=== PATIENT | female | born 1985 | race Two or more races ===

== ENCOUNTER 2020-09-16 15:37 | Emergency (ER) | payer SELFPAY ==
[2020-09-16] MEDS ORDERED: Acetaminophen/HYDROcodone 325-5 MG Tab PO ONE ×2 (15:38→18:42)
--- NOTE | 2020-09-16 15:59 | EDM.PDOC ---
ED HPI GENERAL MEDICAL PROBLEM - General Stated Complaint: BACK PAIN AND STOMACH Time Seen by Provider: 09/16/20 15:55 Source of Information: Reports: Patient History Limitations: Reports: No Limitations - History of Present Illness INITIAL COMMENTS - FREE TEXT/NARRATIVE: 35-year-old female who reports yesterday morning she awoke with in her right lower abdomen and flank and it has seemed to move around to her right back as well. The pain has been a constant pain that she reports is a dull and aching pain but there are sharp spikes with the pain and there is worse pain with movement and with palpation of the area. She has had nausea but no vomiting. She has had really no appetite and she has had decreased oral intake and has not really been eating at all. She reports the pain is a 10/10. She also reports that she has been having burning with urination. No fevers or chills. No cough. No nasal congestion. No diarrhea. There are no other associated signs or symptoms. There are no other modifying factors. Onset: Other (Yesterday morning) Duration: Constant, Getting Worse Location: Reports: Abdomen, Back Quality: Reports: Ache, Sharp Severity: Severe Improves with: Reports: None Worsens with: Reports: Other (Palpation), Movement Context: Reports: Other (As above.) Associated Symptoms: Reports: Loss of Appetite, Nausea/Vomiting Treatments [facility]: Reports: Other (see below) (Nothing.) right back Pain Score (Numeric/FACES): 10 - Related Data Allergies Allergy/AdvReac Type Severity Reaction Status Date / Time morphine AdvReac Mild Nausea and Verified 09/16/20 17:57 Vomiting Home Meds: Home Meds Sulfamethoxazole/Trimethoprim [Bactrim Ds Tablet] 1 each PO BID 10 Days #20 tablet 09/16/20 [Rx] Past Medical History Cardiovascular History: Reports: Arrhythmia (She has an AICD in place) - Past Surgical History Cardiovascular Surgical History: Reports: AICD Female Surgical History: Reports: Hysterectomy Social & Family History - Tobacco Use Tobacco Use Status *Q: Unknown Ever Used Tobacco (Nonsmoker) - Alcohol Use Alcohol Use History: No - Living Situation & Occupation Occupation: Unemployed ED ROS GENERAL - Review of Systems Review Of Systems: See Below Constitutional: Reports: No Symptoms HEENT: Reports: No Symptoms Respiratory: Reports: No Symptoms Cardiovascular: Reports: No Symptoms Endocrine: Reports: No Symptoms GI/Abdominal: Reports: Abdominal Pain, Nausea. Denies: Diarrhea, Vomiting : Reports: Dysuria, Flank Pain (Right) Musculoskeletal: Reports: Back Pain (Right-sided back pain) Skin: Reports: No Symptoms Neurological: Reports: No Symptoms Hematologic/Lymphatic: Reports: No Symptoms Immunologic: Reports: No Symptoms ED EXAM, GI/ABD - Physical Exam Exam: See Below Exam Limited By: No Limitations General Appearance: Alert, WD/WN, Moderate Distress (In acute pain.) Eyes: Bilateral: Normal Appearance Ears: Normal External Exam, Hearing Grossly Normal Nose: Normal Inspection, Normal Mucosa, No Blood Throat/Mouth: Normal Voice, No Airway Compromise, Other (Dry mucous membranes) Head: Atraumatic, Normocephalic Neck: Normal Inspection, Supple, Non-Tender, Full Range of Motion Respiratory/Chest: No Respiratory Distress, Lungs Clear, Normal Breath Sounds, No Accessory Muscle Use, Chest Non-Tender Cardiovascular: Normal Peripheral Pulses, Regular Rate, Rhythm, No Murmur GI/Abdominal Exam: Normal Bowel Sounds, Soft, Tender (In her right lower quadrant and right flank.) Back Exam: Normal Inspection, CVA Tenderness (R) Extremities: Normal Inspection, Normal Range of Motion, Non-Tender, No Pedal Edema, Normal Capillary Refill Neurological: Alert, Oriented, CN II-XII Intact, Normal Cognition, No Motor/Sensory Deficits Psychiatric: Normal Affect Skin Exam: Warm, Dry, Intact, Normal Color, No Rash Course - Vital Signs Last Recorded V/S: Last Vital Signs Temp 36.5 C 09/16/20 15:50 Pulse 66 09/16/20 17:57 Resp 16 09/16/20 17:57 BP 104/67 09/16/20 17:57 Pulse Ox 100 09/16/20 17:57 - Orders/Labs/Meds Orders: Active Orders 24 hr Category Date Time Status Abdomen Pelvis wo Cont [CT] Stat Exams 09/16/20 17:32 Taken Acetaminophen/HYDROcodone [Dale 325-5 MG] Med 09/16/20 18:42 Once 2 tab PO ONETIME ONE Sodium Chloride 0.9% [Normal Saline] 1,000 ml Med 09/16/20 16:15 Active IV ASDIRECTED Sodium Chloride 0.9% [Saline Flush] Med 09/16/20 16:08 Active 10 ml FLUSH ASDIRECTED PRN cefTRIAXone [Rocephin] Med 09/16/20 18:43 Once 1 gm IVPUSH ONETIME ONE Peripheral IV Insertion Adult [OM.PC] Routine Oth 09/16/20 16:08 Ordered Medication Orders Hydrocodone Bitart/Acetaminophen (Dale 325-5 Mg) 2 tab PO ONETIME ONE Stop: 09/16/20 18:43 Ceftriaxone Sodium (Rocephin) 1 gm IVPUSH ONETIME ONE Stop: 09/16/20 18:44 Sodium Chloride (Normal Saline) 1,000 mls @ 150 mls/hr IV ASDIRECTED TERRY Last Admin: 09/16/20 17:52 Dose: 150 mls/hr Documented by: LISY Sodium Chloride (Saline Flush) 10 ml FLUSH ASDIRECTED PRN PRN Reason: Keep Vein Open Last Admin: 09/16/20 16:33 Dose: 10 ml Documented by: LISY Labs: Laboratory Tests 09/16/20 09/16/20 09/16/20 Range/Units 16:00 16:00 16:00 WBC 6.1 (3.0-10.3) x10-3/uL RBC 4.73 (3.60-5.20) x10(6)uL Hgb 14.3 (11.4-15.5) g/dL Hct 43.9 (34.2-48.2) % MCV 92.8 (76.7-100.5) fL MCH 30.3 (23.9-33.9) pg MCHC 32.7 (31.9-34.8) g/dL RDW 13.7 (12.3-16.5) % Plt Count 237 (151-488) x10(3)uL MPV 8.2 (7.1-12.4) fL Neut % (Auto) 62.3 (30.8-76.2) % Lymph % (Auto) 27.7 (18.4-52.1) % [place] % (Auto) 7.7 (4.4-15.7) % Eos % (Auto) 1.6 (0.6-8.1) % Baso % (Auto) 0.7 (0.2-1.5) % Neut # (Auto) 3.8 (1.5-6.3) x10-3/uL Lymph # (Auto) 1.7 (1.0-4.4) x10-3/uL [place] # (Auto) 0.5 (0.3-1.0) x10-3/uL Eos # (Auto) 0.1 (0.0-0.8) x10-3/uL Baso # (Auto) 0.0 (0.0-0.1) x10-3/uL Sodium 138 (135-145) mmol/L Potassium 4.2 (3.5-5.3) mmol/L Chloride 102 (100-110) mmol/L Carbon Dioxide 26 (21-32) mmol/L BUN 17 (7-18) mg/dL Creatinine 0.6 (0.55-1.02) mg/dL Est Cr Clr Drug Dosing TNP Estimated GFR (MDRD) > 60 (>60) BUN/Creatinine Ratio 28.3 H (9-20) Glucose 98 (80-116) mg/dL Calcium 9.0 (8.6-10.2) mg/dL Magnesium 2.2 (1.8-2.5) mg/dL Total Bilirubin 0.3 (0.1-1.3) mg/dL AST 20 (5-25) IU/L ALT 25 (12-36) U/L Alkaline Phosphatase 51 L (56-112) IU/L C-Reactive Protein (0.5-0.9) mg/dL Total Protein 7.7 (6.0-8.0) g/dL Albumin 3.9 (3.5-5.2) g/dL Globulin 3.8 g/dL Albumin/Globulin Ratio 1.0 Lipase (73-393) U/L Urine Color Yellow (YELLOW) Urine Appearance Clear (CLEAR) Urine pH 5.0 (5.0-6.5) Ur Specific [place] 1.015 (1.010-1.025) Urine Protein Negative (NEGATIVE) mg/dL Urine Glucose (UA) Normal (NORMAL) mg/dL Urine Ketones Negative (NEGATIVE) mg/dL Urine Occult Blood Negative (NEGATIVE) Urine Nitrite Negative (NEGATIVE) Urine Bilirubin Negative (NEGATIVE) Urine Urobilinogen Normal (NEGATIVE) mg/dL Ur Leukocyte Esterase Negative (NEGATIVE) Urine RBC 0-5 (0-5) Urine WBC 0-5 (0-5) Ur Squamous Epith Cells Occasional (NS,R,O) Urine Bacteria Rare H (NS) 09/16/20 Range/Units 16:00 WBC (3.0-10.3) x10-3/uL RBC (3.60-5.20) x10(6)uL Hgb (11.4-15.5) g/dL Hct (34.2-48.2) % MCV (76.7-100.5) fL MCH (23.9-33.9) pg MCHC (31.9-34.8) g/dL RDW (12.3-16.5) % Plt Count (151-488) x10(3)uL MPV (7.1-12.4) fL Neut % (Auto) (30.8-76.2) % Lymph % (Auto) (18.4-52.1) % [place] % (Auto) (4.4-15.7) % Eos % (Auto) (0.6-8.1) % Baso % (Auto) (0.2-1.5) % Neut # (Auto) (1.5-6.3) x10-3/uL Lymph # (Auto) (1.0-4.4) x10-3/uL [place] # (Auto) (0.3-1.0) x10-3/uL Eos # (Auto) (0.0-0.8) x10-3/uL Baso # (Auto) (0.0-0.1) x10-3/uL Sodium (135-145) mmol/L Potassium (3.5-5.3) mmol/L Chloride (100-110) mmol/L Carbon Dioxide (21-32) mmol/L BUN (7-18) mg/dL Creatinine (0.55-1.02) mg/dL Est Cr Clr Drug Dosing Estimated GFR (MDRD) (>60) BUN/Creatinine Ratio (9-20) Glucose (80-116) mg/dL Calcium (8.6-10.2) mg/dL Magnesium (1.8-2.5) mg/dL Total Bilirubin (0.1-1.3) mg/dL AST (5-25) IU/L ALT (12-36) U/L Alkaline Phosphatase (56-112) IU/L C-Reactive Protein < 0.2 L (0.5-0.9) mg/dL Total Protein (6.0-8.0) g/dL Albumin (3.5-5.2) g/dL Globulin g/dL Albumin/Globulin Ratio Lipase 112 (73-393) U/L Urine Color (YELLOW) Urine Appearance (CLEAR) Urine pH (5.0-6.5) Ur Specific [place] (1.010-1.025) Urine Protein (NEGATIVE) mg/dL Urine Glucose (UA) (NORMAL) mg/dL Urine Ketones (NEGATIVE) mg/dL Urine Occult Blood (NEGATIVE) Urine Nitrite (NEGATIVE) Urine Bilirubin (NEGATIVE) Urine Urobilinogen (NEGATIVE) mg/dL Ur Leukocyte Esterase (NEGATIVE) Urine RBC (0-5) Urine WBC (0-5) Ur Squamous Epith Cells (NS,R,O) Urine Bacteria (NS) Meds: Medications Generic Name Dose Route Start Last Admin Trade Name Freq PRN Reason Stop Dose Admin Hydrocodone Bitart/Acetaminophen 2 tab 09/16/20 18:42 Dale 325-5 Mg PO 09/16/20 18:43 ONETIME ONE Ceftriaxone Sodium 1 gm 09/16/20 18:43 Rocephin IVPUSH 09/16/20 18:44 ONETIME ONE Sodium Chloride 1,000 mls @ 150 mls/hr 09/16/20 16:15 09/16/20 17:52 Normal Saline IV 150 mls/hr ASDIRECTED TERRY Administration Sodium Chloride 10 ml 09/16/20 16:08 09/16/20 16:33 Saline Flush FLUSH 10 ml ASDIRECTED PRN Administration Keep Vein Open Discontinued Medications Generic Name Dose Route Start Last Admin Trade Name Freq PRN Reason Stop Dose Admin Hydromorphone HCl 1 mg 09/16/20 16:53 09/16/20 16:58 Dilaudid IVPUSH 09/16/20 16:54 1 mg ONETIME ONE Administration Sodium Chloride 1,000 mls @ 999 mls/hr 09/16/20 16:09 09/16/20 16:33 Normal Saline IV 09/16/20 17:09 999 mls/hr .BOLUS ONE Administration Ketorolac Tromethamine 30 mg 09/16/20 17:39 09/16/20 17:50 Toradol IVPUSH 09/16/20 17:40 30 mg ONETIME ONE Administration Morphine Sulfate 4 mg 09/16/20 16:09 09/16/20 17:49 Morphine IVPUSH 09/16/20 16:10 Not Given ONETIME ONE Ondansetron HCl 4 mg 09/16/20 16:09 09/16/20 16:34 Zofran IVPUSH 09/16/20 16:10 4 mg ONETIME ONE Administration - Radiology Interpretation Free Text/Narrative:: CT of abdomen and pelvis showed a normal appendix with no evidence of kidney stone or inflammatory changes or any evidence of bowel obstruction. There was a small amount of free fluid in the pelvis and the right ovary appeared to be somewhat bigger than the left ovary and the radiologist posed the possibility of this being a ruptured ovarian cyst. However, he did not see any acute abnormality. - Re-Assessments/Exams Free Text/Narrative Re-Assessment/Exam: 09/16/20 17:30: Patient is still complaining of 8-10/10 level of pain. She reports she had some reduction in the pain after the Dilaudid but it appears to be coming back. She is just going over CT scan now. I will will give the patient Toradol 30 mg IV. Her blood tests and urine test were all reassuringly normal. Because of the patient's dysuria, I will send her urine for culture. I will await the results of the CT scan of her abdomen and pelvis. 09/16/20 18:30: I discussed the patient's CT scan with the radiologist. There does not appear to be anything of a serious nature. He felt that this was an essentially negative exam except for a trace amount of free fluid and a possible ruptured ovarian cyst. The patient is at this point having continued pain and did not really have any relief from the Toradol. This could represent a pyelonephritis since she has dysuria but her urine really isn't that remarkable. I did send the urine for culture. I will plan on given the patient Rocephin 1 g IV. I am not really seeing anything that should need much more pain medications but I will give the patient a take home pack of hydrocodone and I will give her a dose of hydrocodone now. She can take ibuprofen for the pain as needed. Place the patient on Bactrim DS twice a day for 10 days for treatment of suspected UTI. I have urged the patient to establish with a primary provider and she can follow-up with the clinic. She is stable for discharge at this point. I discussed all of this with the patient and I have answered her questions. Precautions and reasons for return to the emergency department were discussed with the patient while she was in the emergency department are detailed in the patient's discharge instructions. Departure - Departure Time of Disposition: 19:00 Disposition: Home, Self-Care 01 Condition: Good (Stable) Clinical Impression: Abdominal pain with radiation to back, Ruptured ovarian cyst UTI (urinary tract infection) Qualifiers: Urinary tract infection type: site unspecified Hematuria presence: without hematuria Qualified Code(s): N39.0 - Urinary tract infection, site not specified - Discharge Information Prescriptions: Sulfamethoxazole/Trimethoprim [Bactrim Ds Tablet] 1 each PO BID 10 Days #20 tablet Instructions: Ovarian Cyst, [id number], Flank Pain, Adult, [id number], Ant ibiotic Medicine, Adult, [id number], Urinary Tract Infection, Adult, [id number], Abdominal Pain, Adult, [id number] Referrals: PCP,None [Primary Care Provider] - Additional Instructions: Your blood tests were all reassuringly normal. Your urine test did not show any definite evidence of infection but I did send the urine for culture and I am placing you on antibiotics to treat for a potential infection. The CT scan of your abdomen and pelvis showed no problem of a serious nature. You did have some evidence of a ruptured ovarian cyst that could be contributing to the pain that you are having. This is something that should rapidly improve over the next day. You can take ibuprofen 600 mg by mouth every 6 hours as needed for pain. I did give you of hydrocodone 5/325 that you can use for more severe pain. You should establish with a primary provider and you should follow-up in the clinic if you are having any persisting problems. Back to the emergency department for high fever, unrelenting vomiting, marked increase in pain, severe weakness or any other concerning sign or symptom. Sepsis Event Note (ED) - Focused Exam Vital Signs: Vital Signs Temp Pulse Resp BP Pulse Ox 09/16/20 17:57 66 16 104/67 100 09/16/20 15:50 36.5 C 74 16 104/70 100 09/16/20 15:40 36.5 C 74 18 104/70 100 - My Orders Last 24 Hours: My Active Orders 09/16/20 16:08 Sodium Chloride 0.9% [Saline Flush] 10 ml FLUSH ASDIRECTED PRN Peripheral IV Insertion Adult [OM.PC] Routine 09/16/20 16:15 Sodium Chloride 0.9% [Normal Saline] 1,000 ml IV ASDIRECTED 09/16/20 17:32 Abdomen Pelvis wo Cont [CT] Stat 09/16/20 18:42 Acetaminophen/HYDROcodone [Dale 325-5 MG] 2 tab PO ONETIME ONE 09/16/20 18:43 cefTRIAXone [Rocephin] 1 gm IVPUSH ONETIME ONE - Assessment/Plan Last 24 Hours: My Active Orders 09/16/20 16:08 Sodium Chloride 0.9% [Saline Flush] 10 ml FLUSH ASDIRECTED PRN Peripheral IV Insertion Adult [OM.PC] Routine 09/16/20 16:15 Sodium Chloride 0.9% [Normal Saline] 1,000 ml IV ASDIRECTED 09/16/20 17:32 Abdomen Pelvis wo Cont [CT] Stat 09/16/20 18:42 Acetaminophen/HYDROcodone [Dale 325-5 MG] 2 tab PO ONETIME ONE 09/16/20 18:43 cefTRIAXone [Rocephin] 1 gm IVPUSH ONETIME ONE
[2020-09-16] MEDS ORDERED: Sodium Chloride 0.9% 10 ML Syringe FLUSH PRN (16:08)
[2020-09-16] MEDS ORDERED: Sodium Chloride 0.9% 1,000 ML IV ONE (16:09)
[2020-09-16] MEDS ORDERED: Morphine 4 MG/ML VIAL IVPUSH ONE (16:09)
[2020-09-16] MEDS ORDERED: Ondansetron 4 MG/2 ML SDV IVPUSH ONE (16:09)
[2020-09-16] MEDS ORDERED: Sodium Chloride 0.9% 1,000 ML IV SCH (16:15)
[2020-09-16] MEDS ORDERED: HYDROmorphone 2 MG/ML SDV IVPUSH ONE (16:53)
[2020-09-16] MEDS ORDERED: Ketorolac 30 MG/ML SDV IVPUSH ONE (17:39)
[2020-09-16] MEDS ORDERED: cefTRIAXone 1 GM Vial IVPUSH ONE (18:43)
--- NOTE | 2020-09-16 19:05 | CT ---
CT ABDOMEN AND PELVIS WITHOUT CONTRAST INDICATION: Right back, flank and lower abdominal pain. Question kidneys stone. Spiral 2.5 mm axial sections were obtained through the abdomen and pelvis with sagittal and coronal reconstructions 09/16/2020--no comparisons. Total exam DLP was 508.85 mGy-cm. The lower lung garcia and pleural spaces visualized appeared normal. The heart did not appear enlarged. Pacemaker lead is noted in place. It appears to be in the coronary sinus. They kidneys show no evidence of renal calcinosis or definite obstructive uropathy. The appendix appears normal visualized on axial images 125 through 135. No evidence of free air or bowel obstruction was identified. The uterus is absent compatible with history of its removal. Urinary bladder was unremarkable. What appears to be the right ovary appeared normal. The left ovary also appeared to be normal. There appears to be some minimal free fluid in the posterior cul-de-sac area--anterior to the rectum. There is some minimal calcification in the right iliac artery. The upper abdominal organs appear grossly normal including the liver, gallbladder, spleen, pancreas, adrenal glands, and kidneys. No retroperitoneal mass was seen. No organomegaly, mass lesions, or additional areas of free fluid were identified. IMPRESSION: 1. There is some minimal free fluid in the posterior cul-de-sac which could be on the basis of physiologic status from her right or left ovary--correlate clinically. 2. CT abdomen and pelvis without IV or oral contrast was otherwise unremarkable. 3. Post hysterectomy. Report was called to Dr. Cuenca at 1823 hours. [facility]
== END 2020-09-16 19:13 | disposition home or self-care (01) ==
LOC: FB.ED 15:37
DX: N83.209 Unspecified ovarian cyst, unspecified side (principal); N39.0 Urinary tract infection, site not specified; Z88.5 Allergy status to narcotic agent
CPT/HCPCS: 36415; 74176; 80053; 81001; 83690; 83735; 85025; 86140; 87086; 87186; 96374; 96375; 99284-25; A9270-GY; J0696; J1170; J1885; J2405; J7030